=== PATIENT | female | born 1995 | race African-American/Black ===

== ENCOUNTER 2020-07-30 17:47 | Inpatient (IN) | payer OTHER, SELFPAY ==
[2020-07-30 18:13] VITALS: BP 137/99; PULSE 67; RESP 15; TEMP 36.2; O2SAT 99
--- NOTE | 2020-07-30 19:09 | ED.GENADULT ---
HPI - General Adult General Chief complaint: Unspecified Stated complaint: lupus flare up, no local specialist Time Seen by Provider: 07/30/20 18:57 History of Present Illness HPI narrative: 25 yo female w/ SLE presents to the ED for a Lupus flare. She has had atraumatic bruising of the lower extremities and bleeding ulcers in her mouth for a few weeks. She also reports having a recent very heavy period. SHe frequently feels light headed and occasionally SOB. These are not her typical lupus symptoms, but she believes that they are related. She has a prescription for hydroxychloroquine, but she had not been taking it regularly. She was on prednisone, but ran out. She has no doctor in the area. Related Data Home Medications Medication Instructions Recorded Confirmed hydroxychloroquine 200 mg PO DAILY 07/30/20 07/30/20 multivitamin with iron [Daily 1 tablet PO DAILY 07/30/20 07/30/20 Multivitamins W/Iron] mycophenolate mofetil 1,000 mg PO Q12H 07/30/20 07/30/20 Allergies Allergy/AdvReac Type Severity Reaction Status Date / Time No Known Allergies Allergy Verified 07/31/20 03:14 Review of Systems Review of Systems: All systems reviewed & are unremarkable except as noted in HPI and below Constitutional: Constitutional: Denies fever(s) Eyes: Eyes: Reports no additional eye complaints Cardiovascular: Cardiovascular: Denies chest pain Gastrointestinal: Gastrointestinal: Denies abdominal pain and Denies vomiting Musculoskeletal: Musculoskeletal: Denies arthralgias Neurologic: Denies numbness and Denies weakness Psychiatric: Psychiatric: Denies confusion [facility] Past Medical History Medical History (Updated 07/31/20 @ 03:24 by Kieran Salgado MD) Lupus Social History Social History Smoking status: Never smoker Alcohol intake: never Substance use: never Gender identity (if verbalized by the patient): Female Spiritual care concerns: No Exam Const: General: healthy appearing, no acute distress and alert Orientation/consciousness: patient oriented x3 HENMT: Head: normal to inspection Mouth: Yes other (single on soft palate with overlying clot) Neck: Neck: normal visual inspection and no lymphadenopathy Chest: Chest palpation & inspection: no tenderness Resp: Effort & Inspection: normal respiratory effort Auscultation: clear to auscultation bilaterally, no rales, no rhonchi and no wheezes Cardio: Jugular venous distension: no JVD Rate: regular rate Rhythm: regular rhythm Heart sounds: no murmurs GI: Inspection: non-distended GI Palp: Yes Soft to palpation and No Tenderness to palpation present (GI) Skin: Other: scattered bruising to BLE in various stages of healing Neuro: General: patient oriented x3 and moves all extremities Speech: normal speech Extrem: General: no edema Psych: Appearance: well kempt Affect: normal affect Course Vital Signs Vital signs: Vital Signs Temperature 36.2 C L 07/30/20 18:13 Pulse Rate 67 07/30/20 18:13 Respiratory Rate 15 07/30/20 18:13 Blood Pressure 137/99 H 07/30/20 18:13 Pulse Oximetry 99 07/30/20 18:13 Temperature 36.6 C 07/31/20 02:39 Pulse Rate 69 07/31/20 02:39 Respiratory Rate 20 07/31/20 02:39 Blood Pressure 120/63 07/31/20 02:39 Pulse Oximetry 100 07/31/20 02:39 Medical Decision Making Vital Signs Vital Signs: Vital Signs Temperature 36.2 C L 07/30/20 18:13 Pulse Rate 67 07/30/20 18:13 Respiratory Rate 15 07/30/20 18:13 Blood Pressure 137/99 H 07/30/20 18:13 Pulse Oximetry 99 07/30/20 18:13 Temperature 36.6 C 07/31/20 02:39 Pulse Rate 69 07/31/20 02:39 Respiratory Rate 20 07/31/20 02:39 Blood Pressure 120/63 07/31/20 02:39 Pulse Oximetry 100 07/31/20 02:39 Lab Data Result diagrams: 07/30/20 20:12 07/30/20 20:12 Labs: Lab Results 07/30/20 07/30/20 07/30/20 Range/Units 20:12 20:12 20:12 WBC 2.5 L (4.
[2020-07-30 20:23] LABS: Basophils Percent Auto 0.4 % (0.2-1.2); Eosinophils Percent Auto 0.4 % (0-4.4); Hematocrit 35.4 % (37.0-47.0); Hemoglobin 11.9 g/dL (12.0-15.0); Immature Platelet Fraction Pct 12.4 % (0.9-11.2); Lymphocytes Absolute Auto 1.43 K/mm3 (0.9-3.2); Lymphocytes Percent Auto 57.2 % (18.3-44.2); Mean Corpuscular HGB Conc 33.6 g/dl (32-36); Mean Corpuscular Hemoglobin 28.9 pg (26-34); Mean Corpuscular Volume 85.9 fl (80-100); Monocytes Absolute Auto 0.2 K/mm3 (0.1-0.6); Neutrophils Absolute Auto 0.9 K/mm3 (1.3-6.7); Red Blood Count 4.12 M/mm3 (4.2-5.4); Red Cell Distribution Width 12.9 % (11.5-14.5); White Blood Count 2.5 K/mm3 (4.5-10.0)
[2020-07-30 20:30] LABS: Prothrombin Time 13.3 Seconds (11.1-14.7)
[2020-07-30 20:31] LABS: Partial Thromboplastin Time 25.7 SECONDS (22.3-36.8); Platelet Count Result < 3 k/mm3 (150-375)
[2020-07-30 20:33] LABS: Add Urine Microscopic? YES; Appearance Urine Clear (Clear); Bacteria Urine Trace /hpf; Bilirubin Urine Negative (Negative); Blood Urine 1+ (Negative); Color Urine Straw (Yellow); Glucose Urine UA Negative (Negative); Ketones Urine Negative (Negative); Leukocyte Esterase Ur Negative LEU/UL (Negative); Mucus Urine Rare /lpf; Nitrate Urine Negative (Negative); Protein Urine 1+ mg/dL (Negative); Specific Grav Ur 1.012 (1.001-1.035); Squamous Epithelial Cell Urine Rare /hpf (Few); Urobilinogen Urine Negative mg/dL (<2.0); WBC Urine 0-3 /hpf
[2020-07-30 20:36] LABS: Alanine Aminotransferase 12 U/L (4-35); Albumin Level 4.5 g/dL (3.5-5.1); Alkaline Phosphatase 53 U/L (38-126); Anion Gap 7 mmol/L (8-16); Aspartate Amino Transferase 24 U/L (14-36); Bilirubin,Total 0.3 mg/dL (0.2-1.3); Blood Urea Nitrogen 8 mg/dL (7-17); Calcium 8.8 mg/dL (8.4-10.2); Carbon Dioxide 31 mmol/L (22-30); Chloride 101 mmol/L (98-107); Estimated CRCL calculation 104 ml/min; Estimated Glomerular Filt Rate > 60; Glucose 85 mg/dL (65-105); Potassium 3.4 mmol/L (3.4-5.0); Sodium 139 mmol/L (137-145)
[2020-07-30 20:59] LABS: Erythrocyte Sedimentation Rate 15 mm/hr (0-20)
[2020-07-30 21:18] VITALS: BP 120/85; PULSE 114; RESP 18; O2SAT 97
[2020-07-30] MEDS: methylPREDNISolone SOD SUCC 125 MG VIAL IV PUSH (21:18)
[2020-07-30] MEDS: PANTOPRAZOLE SODIUM IV 40 MG VIAL IV PUSH (21:18)
[2020-07-30 21:32] LABS: CRP < 0.5 mg/dL (<1.0)
[2020-07-30 22:50] VITALS: BP 126/84; PULSE 70; RESP 20; TEMP 36.5; O2SAT 100; BMI 19.6
--- NOTE | 2020-07-30 23:07 | PC.NURSE ---
This patient, Gregory Kwon, was admitted to [facility] Surg Room 312-01. Patient/family oriented to hospital policies and general routines including ID bracelet, bed and alarms, visiting hours, pain management, procedures, bathroom and other care routines, personal items, smoking policy, room service/diet, and visiting hours. Information on how to activate the Rapid Response Team has been discussed. Patient/Family are encouraged to report perceived risks to care and to ask questions if they do not understand what they are told or what they should do.
[2020-07-30 23:54] VITALS: BP 114/68; PULSE 71; RESP 20; TEMP 36.8; O2SAT 100
[2020-07-31] VITALS (12 sets, daily range): BP systolic 101–125; BP diastolic 61–77; PULSE 60–70; RESP 18–20; TEMP 36.1–36.9; O2SAT 98–100
[2020-07-31] MEDS: methylPREDNISolone SOD SUCC 125 MG VIAL IV PUSH ×3 (05:44→21:22)
[2020-07-31 06:08] LABS: Hematocrit 35.7 % (37.0-47.0); Hemoglobin 12.2 g/dL (12.0-15.0); Immature Granulocyte Absolute 0.01 K/mm3 (0.00-0.031); Immature Granulocyte Percent A 0.4 % (0-0.5); Immature Platelet Fraction Pct 12.3 % (0.9-11.2); Lymphocytes Absolute Auto 0.86 K/mm3 (0.9-3.2); Lymphocytes Percent Auto 32.8 % (18.3-44.2); Mean Corpuscular HGB Conc 34.2 g/dl (32-36); Monocytes Absolute Auto 0.1 K/mm3 (0.1-0.6); Monocytes Percent Auto 3.1 % (2.6-8.5); Neutrophils Absolute Auto 1.7 K/mm3 (1.3-6.7); Neutrophils Percent Auto 63.7 % (45.5-73.1); Red Cell Distribution Width 12.8 % (11.5-14.5); White Blood Count 2.6 K/mm3 (4.5-10.0)
[2020-07-31 06:27] LABS: Anion Gap 10 mmol/L (8-16); Blood Urea Nitrogen 9 mg/dL (7-17); Calcium 9.4 mg/dL (8.4-10.2); Carbon Dioxide 25 mmol/L (22-30); Chloride 107 mmol/L (98-107); Estimated CRCL calculation 111 ml/min; Estimated Glomerular Filt Rate > 60; Glucose 121 mg/dL (65-105); Potassium 4.2 mmol/L (3.4-5.0); Sodium 142 mmol/L (137-145)
[2020-07-31 06:51] LABS: Platelet Count Result 21 k/mm3 (150-375)
--- NOTE | 2020-07-31 07:07 | PM.IMHP ---
H&P: HPI History of Present Illness Date/Time: 07/31/20 06:20 Chief complaint: ?Lupus flare up? Narrative: Gregory Kwon is a 25 year old female with a past medical history of SLE since 2016 who presented to the ER due to atraumatic bruising of her extremities and petechiae. The patient reported that she noticed increased bruising from her baseline about 2 weeks ago. That she started her menstrual cycle on the and had a heavier than usual menses. Her menstrual cycle has since stopped. She had also noticed what she thought were blisters in her mouth but are actually petechiae. She was having some bleeding when brushing her teeth as well. These symptoms are different than her usual lupus flares. Her usual with lupus flares involve swelling of the joints her joints. When she was initially diagnosed with lupus she had a complicated course including bilateral pleural effusions requiring bilateral thoracentesis and steroid difficulty swallowing (I suspect possibly thrush or steroid induced esophagitis). She required a blood transfusion with her initial illness in 2015. The patient moved to this area from [place] last year. She has not established with a primary care doctor or paraffiner. She reports that she has been taking her hydroxychloroquine and mycophenolate as directed. But she quit taking the prednisone 5 mg. She reports that she does not like taking steroids because of the side effects she had with the steroids during her initial occurrence of lupus. When she was taking her prednisone she was not taking it as directed. She reports that she has been relatively asymptomatic with her SLE over the last year. She denies any hematochezia, melena or hematuria. She has not had any recent viral illnesses. She denies any known ill contacts. However she works with the public in financial circles. Review of Systems Review of Systems: Narrative: 12 systems were reviewed with pertinent positives and negatives per HPI. Except as documented in the HPI, all other systems were reviewed and are negative. [facility] Past Medical History Medical History (Updated 07/31/20 @ 08:35 by Fannie Odom DO) SLE (systemic lupus erythematosus) Surgical History Surgical History (Updated 07/31/20 @ 08:35 by Fannie Odom DO) History of esophagogastroduodenoscopy (EGD) 2016 History of thoracentesis Bilateral 2016 Family History Family History Mother Patient's mother is in good health Father Patient's father is in good health Sibling Patient's brother is in good health Patient's sister is in good health Social History Social History (Updated 07/31/20 @ 08:38 by Fannie Odom DO) Social History: She moved to the area last year when her job transferred her up here. She works in the financial industry. She is originally from [place]. She is single and lives alone. Smoking status: Never smoker Alcohol intake: never Substance use: never Gender identity (if verbalized by the patient): Female Spiritual care concerns: No Meds Home Medications and Allergies Home Medications Medication Instructions Recorded Confirmed Type hydroxychloroquine 200 mg PO DAILY 07/30/20 07/30/20 History multivitamin with iron [Daily 1 tablet PO DAILY 07/30/20 07/30/20 History Multivitamins W/Iron] mycophenolate mofetil 1,000 mg PO Q12H 07/30/20 07/30/20 History Allergies Allergy/AdvReac Type Severity Reaction Status Date / Time No Known Allergies Allergy Verified 07/31/20 03:14 Vital Signs Vital Signs - 24 hr 07/30/20 18:13 07/30/20 21:18 07/30/20 22:50 Temperature 97.1 F L 97.7 F Pulse Rate 67 114 H 70 Respiratory Rate 15 18 20 Blood Pressure 137/99 H 120/85 126/84 Pulse Oximetry 99 97 100 07/30/20 23:54 07/31/20 00:10 07/31/20 01:10 Temperature 98.2 F 98.2 F 97.6 F Pulse Rate 71 70 70 Respiratory Rate 20 20 20 Blood Pressure 114/
[2020-07-31] MEDS: PANTOPRAZOLE SODIUM IV 40 MG VIAL IV PUSH ×2 (09:58→21:22)
[2020-07-31] MEDS: THERAPEUTIC MULTIVITAMINS/MINERALS TAB (*BKC) 1 TABLET PO (09:58)
--- NOTE | 2020-07-31 12:14 | PM.IMPN ---
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 She received 2 units of platelets and platelet count improved to 21,000 from 3,000. Discussed with Dr. Davis and will plan to hold hydroxychloroquine and mycophenolate for now. Continue IV methylprednisolone. Await further input from Dr. Davis which is greatly appreciated. Menstrual bleeding has ceased and she has not had any further bleeding today. (2) Thrombocytopenia: Code(s): D69.6 - Thrombocytopenia, unspecified Status: Acute Assessment and Plan: As above. Continue to monitor closely. (3) SLE (systemic lupus erythematosus): Code(s): M32.9 - Systemic lupus erythematosus, unspecified Status: Chronic Assessment and Plan: Hydroxychloroquine and mycophenolate mofetil are currently held. She understands that with her medication being on hold this may precipitate a flare of her SLE. She will need to establish care with rheumatology locally. Subjective Date/time seen: 07/31/20 12:14 Mrs. Kwon is a 25 y.o. female with PMH significant for SLE who is seen in follow-up for thrombocytopenia felt secondary to ITP verses medication side effect. She reports that she is doing better overall today. Her menstrual bleeding has stopped completely. She notes bruising to the lower extremities and left elbow which is unchanged. She denies hematuria, hematochezia, and melena. She notes no further bleeding from the petechiae in her oral mucosa. She denies epistaxis. She denies significant fatigue and dyspnea today. She denies joint aches/pain. She denies chest pain. She is voiding without difficulty. She denies cough. She denies subjective fever and chills. She denies dizziness and lightheadedness. She has no other complaints. Review of Systems Review of Systems: All systems reviewed & are unremarkable except as noted in HPI and below Exam Narrative: Exam Narrative: General: Very pleasant and cooperative, healthy-appearing, well-developed, and well-nourished 25 y.o. female sitting up in the bed in no acute distress. She is non-toxic in appearance. HEENT: Normocephalic and atraumatic. Sclerae anicteric. Conjunctivae without injection or exudate. PERRL. EOMI. Oral mucosa moist with several petechiae on the buccal mucosa. Neck: Supple. Cardiac: Regular rate and rhythm. S1 and S2 normal. Lungs: Lungs are clear to auscultation bilaterally. Abdomen: Bowel sounds are normoactive. Abdomen is soft, non-distended, and non-tender. Extremities: No lower extremity edema or calf tenderness. Palpable DP and PT bilaterally. Neurological: Alert. No focal neurological deficits noted. Speech is clear. Skin: Warm and dry. Ecchymosis to the lower extremities and left elbow, atraumatic and diffuse. Soft to palpation. Some petechiae on the upper middle back as well. Psychiatric: Judgment and insight intact. Pleasant mood and appropriate affect. Objective Data Vital Signs Vital Signs: Vital Signs - 24 hr 07/30/20 18:13 07/30/20 21:18 07/30/20 22:50 Temperature 97.1 F L 97.7 F Pulse Rate 67 114 H 70 Respiratory Rate 15 18 20 Blood Pressure 137/99 H 120/85 126/84 Pulse Oximetry 99 97 100 07/30/20 23:54 07/31/20 00:10 07/31/20 01:10 Temperature 98.2 F 98.2 F 97.6 F Pulse Rate 71 70 70 Respiratory Rate 20 20 20 Blood Pressure 114/68 116/61 118/66 Pulse Oximetry 100 100 100 07/31/20 01:55 07/31/20 02:19 07/31/20 02:39 Temperature 97.8 F 97.0 F L 97.9 F Pulse Rate 68 67 69 Respiratory Rate 20 20 20 Blood Pressure 125/61 117/67 120/63 Pulse Oximetry 100 100 100 07/31/20 03:39 07/31/20 03:46 07/31/20 03:47 Temperature 98.4 F 97.5 F L 97.5 F L Pulse Rate 64 64 64 Respiratory Rate 20 20 20 Blood Pressure 116/70 1
--- NOTE | 2020-07-31 16:57 | PDONCCN ---
HPI - Date of Consult Date/Time: 07/31/20 16:57 Requesting Physician: Shellie Melara PA-C Primary Care Provider: [employer]ICIAN - Consult Narrative Reason for consult: Profound thrombocytopenia Narrative: Gregory Kwon is a 25 year old female This is a pleasant 25-year-old female who was diagnosed with systemic lupus erythematosus in 2016 when she presented with bilateral lower extremity swelling. Patient was at that time living in [facility]. She was seen by the agricultural research director and was started on Plaquenil as well as CellCept feature continues to take. Patient recently moved. She came into the ER with possible lupus flare of symptoms with bilateral lower extremity bruising. She was having heavy menstrual bleeding which just stopped today. She has some oral blisters. She denies any fevers and chills. Her labs showed platelet count of 3000 in the ER. She denies any melena hematochezia. Review of Systems - Review of Systems All systems reviewed & are unremarkable except as noted in HPI and bel - Neurologic Denies confusion, Denies numbness, Denies weakness PMFSH Medical History: Medical History (Last Updated 07/31/20 @ 08:35 by Fannie Odom DO) SLE (systemic lupus erythematosus) Surgical History: Surgical History (Last Updated 07/31/20 @ 08:35 by Fannie Odom DO) History of esophagogastroduodenoscopy (EGD) 2016 History of thoracentesis Bilateral 2016 Family History: Family History (Last Reviewed 07/31/20 @ 08:37 by Fannie Odom DO) Mother Patient's mother is in good health Father Patient's father is in good health Sibling Patient's brother is in good health Patient's sister is in good health - Social History Social History: Social History (Last Updated 07/31/20 @ 08:38 by Fannie Odom DO) Gender Identity: Gender identity (if verbalized by the patient): Female Alcohol Use: Alcohol intake: never Substance Use: Substance use: never Others: Spiritual care concerns: No Smoking Status: Smoking status: Never smoker Meds Home Medications Medication Instructions Recorded Confirmed Type hydroxychloroquine 200 mg PO DAILY 07/30/20 07/30/20 History multivitamin with iron [Daily 1 tablet PO DAILY 11/02/20 11/02/20 History Multivitamins W/Iron] mycophenolate mofetil 1,000 mg PO Q12H 07/30/20 07/30/20 History Allergies Allergy/AdvReac Type Severity Reaction Status Date / Time No Known Allergies Allergy Verified 07/31/20 03:14 Results - Labs CBC & Chem 7: 07/31/20 05:55 07/31/20 05:55 Labs: Short CBC 07/30/20 07/31/20 Range/Units 20:12 05:55 WBC 2.5 L 2.6 L (4.5-10.0) K/mm3 Hgb 11.9 L 12.2 (12.0-15.0) g/dL Hct 35.4 L 35.7 L (37.0-47.0) % Plt Count < 3 L* 21 L* D (150-375) k/mm3 BMP 07/30/20 07/31/20 20:12 05:55 Sodium 139 142 Potassium 3.4 4.2 Chloride 101 107 Carbon Dioxide 31 H 25 BUN 8 9 Creatinine 0.70 0.60 L Glucose 85 121 H Calcium 8.8 9.4 Liver Function 07/30/20 Range/Units 20:12 Total Bilirubin 0.3 (0.2-1.3) mg/dL AST 24 (14-36) U/L ALT 12 (4-35) U/L Alkaline Phosphatase 53 (38-126) U/L Albumin 4.5 (3.5-5.1) g/dL Urine 07/30/20 Range/Units 20:19 Urine Color Straw (Yellow) Urine Appearance Clear (Clear) Urine pH 6.0 (5.0-9.0) Ur Specific [place] 1.012 (1.001-1.035) Urine Protein 1+ H (Negative) mg/dL Urine Glucose (UA) Negative (Negative) mg/dL Assessment and Plan - Additional Plan Profound thrombocytopenia. This is a pleasant 25-year-old female with diagnosis of systemic lupus erythematosus. She is on CellCept as well as Plaquenil for last 4 years duration. Labs reviewed. 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 I will order platelet Fabiana immunoglobulin. Patient has already been
[2020-08-01] VITALS (13 sets, daily range): BP systolic 111–138; BP diastolic 59–77; PULSE 52–82; RESP 16–20; TEMP 36.2–36.7; O2SAT 100
[2020-08-01 05:29] LABS: Hematocrit 36.9 % (37.0-47.0); Hemoglobin 12.4 g/dL (12.0-15.0); Immature Granulocyte Absolute 0.02 K/mm3 (0.00-0.031); Immature Granulocyte Percent A 0.4 % (0-0.5); Lymphocytes Absolute Auto 0.99 K/mm3 (0.9-3.2); Lymphocytes Percent Auto 20.3 % (18.3-44.2); Mean Corpuscular HGB Conc 33.6 g/dl (32-36); Mean Corpuscular Hemoglobin 28.1 pg (26-34); Mean Corpuscular Volume 83.5 fl (80-100); Monocytes Absolute Auto 0.2 K/mm3 (0.1-0.6); Monocytes Percent Auto 4.3 % (2.6-8.5); Neutrophils Absolute Auto 3.7 K/mm3 (1.3-6.7); Red Blood Count 4.42 M/mm3 (4.2-5.4); Red Cell Distribution Width 12.5 % (11.5-14.5); White Blood Count 4.9 K/mm3 (4.5-10.0)
[2020-08-01] MEDS: methylPREDNISolone SOD SUCC 125 MG VIAL IV PUSH ×3 (05:37→21:49)
[2020-08-01 05:38] LABS: Anion Gap 10 mmol/L (8-16); Blood Urea Nitrogen 12 mg/dL (7-17); Calcium 9.7 mg/dL (8.4-10.2); Carbon Dioxide 31 mmol/L (22-30); Chloride 100 mmol/L (98-107); Estimated CRCL calculation 96 ml/min; Estimated Glomerular Filt Rate > 60; Glucose 131 mg/dL (65-105); Potassium 4.2 mmol/L (3.4-5.0); Sodium 141 mmol/L (137-145)
[2020-08-01 05:50] LABS: Ovalocytes 1+ (NORMAL); Platelet Count Result 6 k/mm3 (150-375); Platelet Estimate Decreased (Adequate)
[2020-08-01 05:51] LABS: Large Platelets Present
[2020-08-01 06:19] LABS: HIV 1/2 Ab P24 Ag Result Negative (Negative)
[2020-08-01 06:36] LABS: Hepatitis B Surface Antigen Negative (Negative)
[2020-08-01 06:42] LABS: HAV RESULT Negative (Negative); Hepatitis B Core IgM Result Negative (Negative)
[2020-08-01 06:44] LABS: Folic Acid 13.5 ng/mL (2.76->20)
[2020-08-01 06:54] LABS: Hepatitis C Virus Antibody Negative (Negative)
[2020-08-01] MEDS: TUBING, BLOOD PLUM PUMP TUBING 1 EACH XX ×2 (09:09→11:36)
[2020-08-01] MEDS: THERAPEUTIC MULTIVITAMINS/MINERALS TAB (*BKC) 1 TABLET PO ×2 (09:09→09:11)
[2020-08-01] MEDS: SODIUM CHLORIDE 0.9% IV 250 ML 30 ML IV CONT (09:09)
[2020-08-01] MEDS: PANTOPRAZOLE SODIUM IV 40 MG VIAL IV PUSH ×2 (11:36→20:39)
--- NOTE | 2020-08-01 12:42 | PM.IMPN ---
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 She received 2 units of platelets 07/30 and platelet count improved to 21,000 from 3,000. Platelets were 6,000 today and she received an additional 2 units of platelets (08/01). Vitamin B12, folate are sufficient. TSH is normal. Hepatitis panel and HIV testing are negative. Dr. Davis is following and has recommended to hold hydroxychloroquine and mycophenolate for now. Direct platelet-bound IgG Ab was ordered and pending. Continue IV methylprednisolone. Discussed with Dr. Davis and may consider IVIG today given decrease in platelets. Await further hematology recommendations. She is not having any ongoing bleeding but does have bruising to the lower extremities, mildly darker in color today. Repeat CBC tomorrow for monitoring. (2) Thrombocytopenia: Code(s): D69.6 - Thrombocytopenia, unspecified Status: Acute Assessment and Plan: As above. Continue to monitor closely. (3) SLE (systemic lupus erythematosus): Code(s): M32.9 - Systemic lupus erythematosus, unspecified Status: Chronic Assessment and Plan: Hydroxychloroquine and mycophenolate mofetil are currently held. She understands that with her medication being on hold this may precipitate a flare of her SLE. She will need to establish care with rheumatology locally and Dr. Alamo has agreed to see her outpatient next week. (4) Headache: Code(s): R51.9 - Headache, unspecified Status: Acute Assessment and Plan: Add tylenol as needed for pain. She notes that the headache continues to improve. Monitor with neuro checks. She believes this is related to solu-medrol as she notes that steroids often cause her to have headaches. Continue to monitor closely. Additional Plan Add colace as needed for constipation. Subjective Date/time seen: 08/01/20 12:42 Mrs. Kwon is a 25 y.o. female with PMH significant for SLE who is seen in follow-up for thrombocytopenia felt secondary to ITP verses medication side effect. Dr. Davis is following. She reports no further menstrual bleeding. The bruises on her legs seem darker to her today but she reports no new bruises. She denies oral bleeding, hematuria, melena, and hematochezia. She reports a mild frontal headache. She notes that it started yesterday evening and has improved throughout the day today. She has not taken anything yet for pain. She denies associated symptoms including no vision change, speech change, paresthesias, or lateralizing weakness. She thinks it may be due to steroids as she has gotten headaches from steroids in the past. She feels constipated today. She had a small, formed stool yesterday but no further bowel movements today. She has no other complaints including no chest pain and shortness of breath. She denies nausea and vomiting. She is tolerating her diet. Review of Systems Review of Systems: All systems reviewed & are unremarkable except as noted in HPI and below Exam Narrative: Exam Narrative: General: Very pleasant and cooperative, healthy-appearing, well-developed, and well-nourished 25 y.o. female sitting up in the bed in no acute distress. She is non-toxic in appearance. HEENT: Normocephalic and atraumatic. Sclerae anicteric. Conjunctivae without injection or exudate. PERRL. EOMI. Oral mucosa moist with several petechiae on the buccal mucosa. Neck: Supple. Cardiac: Regular rate and rhythm. S1 and S2 normal. Lungs: Lungs are clear to auscultation bilaterally. Abdomen: Bowel sounds are normoactive. Abdomen is soft, non-distended, and non-tender. Extremities: No lower extremity edema or calf tenderness. Palpable DP and PT bilaterally. Neurological: Alert. No focal neurol
[2020-08-01] MEDS: ACETAMINOPHEN 325 MG TABLET 650 MG PO ×2 (15:56→21:50)
[2020-08-01] MEDS: DOCUSATE SODIUM 100 MG CAPSULE PO (15:57)
--- NOTE | 2020-08-01 17:42 | WPDONCPN ---
Progress Note: A/P - Additional Plan 1. Suspected ITP. Platelet madonna <3,000 on admission then up to 21,000 after 1U, now decreased to 6,000 today. Coags normal, platelet Ab pending. She is s/p 3 units of platelets, including 2 units today. No significant active bleeding. Transfuse platelets </= 10,000 or with active bleeding. Continue Solumedrol as ordered with concurrent PPI until platelets 50,000 or better then switch to weight-based oral prednisone with 10 mg taper every 5 days. Add IVIG today per Dr. Davis. Explained that this can recur off treatment. Will see as outpatient after discharge. 2. SLE. Referred to Dr. Alamo to establish care upon discharge. - Time Spent With Patient Total time spent is greater than 50% in coordination of care (as documented) at patient's floor/unit and/or counseling patient: less than 15 minutes Subjective Interval history: 25 yo BF admitted on 07/31 after presenting to ER with spontaneous bilat LE painless ecchymosis without trauma and epistaxis x 2 a few days prior to admission. Additionally, she noted blood blisters in her mouth as well as heavier menstrual flow but otherwise denies hematuria, melena or hematochezia. She was otherwise in her usual state of health with lupus since 2016, treated with Cellcept and Plaquenil - currently on hold given thrombocytopenia. She endorses baseline mild intermittent ecchymosis on her lower extremities but not to current degree. She has not had SLE flare since past year. Her menses had stopped when her platelets improved to 21,000 but noted scant brown to light red vaginal bleeding today only with wiping with platelets 6,000. She received 1U of platelets yesterday and 2U today. She otherwise denies other spontaneous or active bleeding, B symptoms, SOB, abdominal pain, or significant joint pain. Review of Systems - Review of Systems All systems reviewed & are unremarkable except as noted in HPI and bel - Neurologic Denies confusion, Denies numbness, Denies weakness Exam Vital signs: Temp Pulse Resp BP Pulse Ox 36.7 C 58 L 16 133/73 100 08/01/20 14:53 08/01/20 14:53 08/01/20 14:53 08/01/20 14:53 08/01/20 14:53 - Constitutional no acute distress, cooperative - Routine HEENT Exam Head: Present: atraumatic, normal inspection, normocephalic Eye: Present: conjunctival injection, EOMI, normal appearance ENT: Present: mucous membranes moist Comments: Tiny blood blister in lower Lt posterior buccal mucosa - Routine Neck Exam Present: full ROM, normal inspection. Absent: lymphadenopathy, thyromegaly - Routine Chest/Breast/Axilla Exam Axillae: Absent: lymphadenopathy - Routine Respiratory Exam Present: CTAB - Routine Cardiovascular Exam Cardiovascular: Present: RRR - Routine Abdominal Exam Present: normal bowel sounds, soft. Absent: tenderness - Routine Extremities Exam Present: pulses intact. Absent: pedal edema, tenderness - Routine Skin Exam Present: ecchymosis Comments: Multiple ecchymosis on bilat lower extremities, largest measuring ~3-3.5 cm, nontender. PN: Objective Data - Labs CBC & Chem 7: 08/01/20 05:19 08/01/20 05:19 Labs: Laboratory Results - last 24 hr 07/30/20 08/01/20 08/01/20 21:14 05:19 05:19 WBC RBC Hgb Hct MCV MCH MCHC RDW Plt Count MPV Immature Gran % (Auto) Neut % (Auto) Lymph % (Auto) [place] % (Auto) Eos % (Auto) Baso % (Auto) Lymph # (Auto) [place] # (Auto) Eos # (Auto) Baso # (Auto) Abs Immat Gran (auto) Absolute Neuts (auto) Absolute Nucleated RBC Nucleated RBC % Platelet Estimate Large Platelets % Immature Plt Fraction Ovalocytes Sodium Potassium Chloride Carbon Dioxide Anion Gap BUN Creatinine Estim Creat Clear Calc Estimated GFR Glucose Calcium Vitamin B12 Folate TSH (Reflex) 0.550 Hepatitis A IgM Ab Negative He
[2020-08-02 06:00] VITALS: BP 110/54; PULSE 50; RESP 20; TEMP 36.9; O2SAT 100
[2020-08-02] MEDS: methylPREDNISolone SOD SUCC 125 MG VIAL IV PUSH ×3 (06:41→22:04)
[2020-08-02 07:51] LABS: Basophils Percent Auto 0.1 % (0.2-1.2); Hematocrit 33.6 % (37.0-47.0); Hemoglobin 11.4 g/dL (12.0-15.0); Immature Granulocyte Absolute 0.02 K/mm3 (0.00-0.031); Immature Granulocyte Percent A 0.3 % (0-0.5); Lymphocytes Absolute Auto 1.15 K/mm3 (0.9-3.2); Lymphocytes Percent Auto 15.3 % (18.3-44.2); Mean Corpuscular HGB Conc 33.9 g/dl (32-36); Mean Corpuscular Hemoglobin 28.9 pg (26-34); Mean Corpuscular Volume 85.1 fl (80-100); Mean Platelet Volume 13.6 fl (7.4-10.4); Monocytes Absolute Auto 0.2 K/mm3 (0.1-0.6); Monocytes Percent Auto 3.1 % (2.6-8.5); Neutrophils Absolute Auto 6.1 K/mm3 (1.3-6.7); Neutrophils Percent Auto 81.2 % (45.5-73.1); Platelet Count Result 71 k/mm3 (150-375); Red Blood Count 3.95 M/mm3 (4.2-5.4); White Blood Count 7.5 K/mm3 (4.5-10.0)
[2020-08-02 08:03] LABS: Anion Gap 7 mmol/L (8-16); Blood Urea Nitrogen 18 mg/dL (7-17); Calcium 9.1 mg/dL (8.4-10.2); Carbon Dioxide 30 mmol/L (22-30); Chloride 102 mmol/L (98-107); Estimated CRCL calculation 85 ml/min; Estimated Glomerular Filt Rate > 60; Glucose 119 mg/dL (65-105); Potassium 4.1 mmol/L (3.4-5.0); Sodium 139 mmol/L (137-145)
[2020-08-02] MEDS: PANTOPRAZOLE SODIUM IV 40 MG VIAL IV PUSH ×2 (09:50→20:27)
--- NOTE | 2020-08-02 12:59 | PM.IMPN ---
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 She received 2 units of platelets 07/30 and platelet count improved to 21,000 from 3,000. Platelet dropped to 6,000 08/01. She was given 2 additional units 08/01. IVIG and platelet count improved to 71,000 today. Vitamin B12, folate are sufficient. TSH is normal. Hepatitis panel and HIV testing are negative. Dr. Davis is following and has recommended to hold hydroxychloroquine and mycophenolate for now. Direct platelet-bound IgG Ab was ordered and pending. Continue IV methylprednisolone and repeat CBC tomorrow. Appreciate hematology input. (2) Thrombocytopenia: Code(s): D69.6 - Thrombocytopenia, unspecified Status: Acute Assessment and Plan: As above. Continue to monitor closely. (3) SLE (systemic lupus erythematosus): Code(s): M32.9 - Systemic lupus erythematosus, unspecified Status: Chronic Assessment and Plan: Hydroxychloroquine and mycophenolate mofetil are currently held. She understands that with her medication being on hold this may precipitate a flare of her SLE. She will need to establish care with rheumatology locally and Dr. Alamo has agreed to see her outpatient. (4) Headache: Code(s): R51.9 - Headache, unspecified Status: Resolved Assessment and Plan: Resolved. Continue tylenol as needed for pain. Additional Plan Add colace as needed for constipation. Subjective Date/time seen: 08/02/20 12:59 Mrs. Kwon is a 25 y.o. female with PMH significant for SLE who is seen in follow-up for thrombocytopenia secondary to ITP. Dr. Davis is following. She is doing well. She had scant vaginal bleeding yesterday with wiping but has not had any further bleeding today. She notes no further bruising. She had a headache yesterday which has resolved. She denies hematuria, melena, and hematochezia. She denies chest pain and dyspnea. She is tolerating her diet. She has no other complaints. Review of Systems Review of Systems: All systems reviewed & are unremarkable except as noted in HPI and below Exam Narrative: Exam Narrative: General:Pleasnt, cooperative, healthy-appearing and well-nourished 25 y.o. female lying semi-recumbent in bed in no acute distress watching TV. HEENT: Normocephalic and atraumatic. Oral mucosa moist with small blisters on buccal mucosa bilaterally without active bleeding and healing. Neck: Supple. Cardiac: Regular rate and rhythm. S1 and S2 normal. Lungs: Lungs are clear to auscultation bilaterally. Abdomen: Bowel sounds are normoactive. Abdomen is soft, non-distended, and non-tender. Extremities: No lower extremity edema or calf tenderness. Neurological: Alert. No focal neurological deficits noted. Speech is clear. Skin: Warm and dry. Ecchymosis to the lower extremities and left elbow, atraumatic and diffuse without evidence of hematoma. Some petechiae on the upper middle back as well. Psychiatric: Judgment and insight intact. Pleasant mood and appropriate affect. Objective Data Vital Signs Vital Signs: Vital Signs - 24 hr 08/01/20 13:01 08/01/20 14:00 08/01/20 14:01 Temperature 98.1 F 97.5 F L 97.5 F L Pulse Rate 74 64 82 Respiratory Rate 16 16 16 Blood Pressure 133/71 115/71 117/72 Pulse Oximetry 100 100 100 08/01/20 14:53 08/01/20 19:35 08/01/20 22:00 Temperature 98.1 F 97.8 F Pulse Rate 58 L 52 L Respiratory Rate 16 20 20 Blood Pressure 133/73 113/72 Pulse Oximetry 100 100 100 08/02/20 06:00 Temperature 98.5 F Pulse Rate 50 L Respiratory Rate 20 Blood Pressure 110/54 L Pulse Oximetry 100 Intake/Output Intake/Output: Intake & Output 07/30/20 07/31/20 08/01/20 08/02/20 23:59 23:59 23:59 23:59 Intake Total 0 184
[2020-08-02 14:00] VITALS: BP 124/67; PULSE 63; RESP 16; TEMP 36.1; O2SAT 100
--- NOTE | 2020-08-02 16:39 | WPDONCPN ---
Progress Note: A/P - Additional Plan Thrombocytopenia secondary to ITP. Platelet antibodies remains pending. Platelet count finally has improved. Patient is on IV Solu-Medrol along with IV IgG today. She also receive another unit of platelet transfusion. I will continue Solu-Medrol at the current dose a until tomorrow and if platelet count remains more than 50,000 we will discontinue IV steroid and start her on prednisone 60 mg twice a day. She will follow-up in the office in 1 week for tapering of the steroid and monitoring of CBC. SLE. Patient will also follow with Dr. anahi Alamo. - Time Spent With Patient Total time spent is greater than 50% in coordination of care (as documented) at patient's floor/unit and/or counseling patient: 15 - 25 minutes Subjective Interval history: Thrombocytopenia secondary to ITP Systemic lupus erythematosus Review of Systems - Review of Systems Patient is feeling good without any tiredness and fatigue. She denies any further bleeding. No abdominal pain. No fevers and chills. She has remains in good spirit. - Neurologic Denies confusion, Denies numbness, Denies weakness Exam Vital signs: Temp Pulse Resp BP Pulse Ox 36.1 C L 63 16 124/67 100 08/02/20 14:00 08/02/20 14:00 08/02/20 14:00 08/02/20 14:00 08/02/20 14:00 Narrative: Lungs are clear to auscultation bilaterally Cardiovascular regular rate rhythm no murmurs Abdomen soft nontender nondistended bowel sounds are positive Extremities no edema some bruises - Constitutional no acute distress, cooperative - Routine HEENT Exam Head: Present: atraumatic, normal inspection, normocephalic - Routine Neck Exam Present: full ROM, normal inspection. Absent: lymphadenopathy, thyromegaly - Routine Chest/Breast/Axilla Exam Axillae: Absent: lymphadenopathy - Routine Respiratory Exam Present: CTAB - Routine Cardiovascular Exam Cardiovascular: Present: RRR - Routine Abdominal Exam Present: normal bowel sounds, soft. Absent: tenderness - Routine Extremities Exam Present: pulses intact. Absent: pedal edema, tenderness - Routine Skin Exam Present: ecchymosis PN: Objective Data - Labs CBC & Chem 7: 08/02/20 07:39 08/02/20 07:39 Labs: Laboratory Results - last 24 hr 08/02/20 08/02/20 07:39 07:39 WBC 7.5 RBC 3.95 L Hgb 11.4 L Hct 33.6 L MCV 85.1 MCH 28.9 MCHC 33.9 RDW 13.0 Plt Count 71 L D MPV 13.6 H Immature Gran % (Auto) 0.3 Neut % (Auto) 81.2 H Lymph % (Auto) 15.3 L [place] % (Auto) 3.1 Eos % (Auto) 0.0 Baso % (Auto) 0.1 L Lymph # (Auto) 1.15 [place] # (Auto) 0.2 Eos # (Auto) 0.0 Baso # (Auto) 0.0 Abs Immat Gran (auto) 0.02 Absolute Neuts (auto) 6.1 Absolute Nucleated RBC 0.0 Nucleated RBC % 0.0 Sodium 139 Potassium 4.1 Chloride 102 Carbon Dioxide 30 Anion Gap 7 L BUN 18 H Creatinine 0.80 Estim Creat Clear Calc 85 Estimated GFR > 60 Glucose 119 H Calcium 9.1
[2020-08-02 19:35] VITALS: RESP 16; O2SAT 100
[2020-08-02 21:52] VITALS: BP 113/57; PULSE 57; RESP 16; TEMP 36.4; O2SAT 100
[2020-08-02] MEDS: ACETAMINOPHEN 325 MG TABLET 650 MG PO (22:04)
[2020-08-03 05:53] VITALS: BP 118/66; PULSE 50; RESP 16; TEMP 36.2; O2SAT 100
[2020-08-03] MEDS: methylPREDNISolone SOD SUCC 125 MG VIAL IV PUSH (05:54)
[2020-08-03 06:40] LABS: Hematocrit 35.6 % (37.0-47.0); Hemoglobin 11.6 g/dL (12.0-15.0); Immature Granulocyte Absolute 0.02 K/mm3 (0.00-0.031); Immature Granulocyte Percent A 0.3 % (0-0.5); Lymphocytes Percent Auto 20.5 % (18.3-44.2); Mean Corpuscular HGB Conc 32.6 g/dl (32-36); Mean Corpuscular Hemoglobin 28.2 pg (26-34); Mean Corpuscular Volume 86.6 fl (80-100); Mean Platelet Volume 12.4 fl (7.4-10.4); Monocytes Absolute Auto 0.3 K/mm3 (0.1-0.6); Monocytes Percent Auto 3.4 % (2.6-8.5); Neutrophils Absolute Auto 5.6 K/mm3 (1.3-6.7); Neutrophils Percent Auto 75.8 % (45.5-73.1); Platelet Count Result 85 k/mm3 (150-375); Red Blood Count 4.11 M/mm3 (4.2-5.4); Red Cell Distribution Width 13.1 % (11.5-14.5); White Blood Count 7.3 K/mm3 (4.5-10.0)
[2020-08-03] MEDS: PANTOPRAZOLE SODIUM IV 40 MG VIAL IV PUSH (08:58)
[2020-08-03] MEDS: THERAPEUTIC MULTIVITAMINS/MINERALS TAB (*BKC) 1 TABLET PO (08:58)
[2020-08-03] MEDS: polyethylene glycoL 3350 17 GM POWD.PACK PO (12:53)
[2020-08-03] MEDS: DOCUSATE SODIUM 100 MG CAPSULE PO (12:54)
--- NOTE | 2020-08-03 15:02 | PM.DS ---
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 Kwon is a 25 y.o. female with PMH significant for SLE who presented to the emergency department for the evaluation of heavy menstrual bleeding, atraumatic bruising to the lower extremities, and bleeding from ulcers in the mouth. Initial workup in the emergency department included CBC with WBC 2.5, Hb 11.9, hematocrit 35.4, platelets <3,000. Direct platelet-bound IgG Ab was ordered and results were available after discharge and positive. She was given 2 units of platelets 07/30 and treated with IV solu-medrol for presumed ITP secondary to SLE and exacerbated by hydroxychloroquine and mycophenolate mofetil use. She was admitted to the hospitalist service and Dr. Davis was consulted. Platelet count improved to 21,000 from 3,000 07/31. Platelet dropped to 6,000 08/01. She was given 2 additional units 08/01. IVIG was given and platelet count improved to 85,000 08/05. Vitamin B12 and folate were sufficient. TSH was normal. Hepatitis panel and HIV testing were negative. She had no further ongoing bleeding or new bruising. She was felt stable for discharge 08/03/[address] Davis's standpoint. He recommended she continue PO prednisone and follow-up with him in the office within 1 week. Repeat CBC was ordered for 08/06 for close monitoring of platelet count. She was referred to Dr. Alamo for management of her SLE and an appointment was scheduled for 08/12. I discussed worrisome signs and symptoms which would warrant return to the emergency department. She felt confortable with the plan for discharge and she was discharged in stable condition on the afternoon of 08/03/20. (2) Thrombocytopenia: Code(s): D69.6 - Thrombocytopenia, unspecified Status: Acute Assessment and Plan: As above. Continue to monitor closely. (3) SLE (systemic lupus erythematosus): Code(s): M32.9 - Systemic lupus erythematosus, unspecified Status: Chronic Assessment and Plan: Hydroxychloroquine and mycophenolate mofetil were held per hematology recommendations as they can both cause thrombocytopenia. She understands that with her medication being on hold this may precipitate a flare of her SLE. She will follow-up outpatient with Dr. Alamo within 1 week for management of her SLE. (4) Headache: Code(s): R51.9 - Headache, unspecified Status: Resolved Assessment and Plan: Resolved. [place] secondary to steroid use as pt reports hx of headaches due to prednisone. DS: Summary Hospital Course Reason for hospitalization: Atraumatic bruising, oral bleeding, heavy menstrual bleeding Hospital Course: As above. Status at Discharge Functional status at discharge: independent ambulation Overall status at discharge: patient is back to baseline Time Spent with Patient Time attestation: Total time spent providing and/or coordinating discharge services: 40 minutes Exam Narrative: Exam Narrative: Vitals at presentation: Temp Pulse Resp BP Pulse Ox 97.1 F L 67 15 137/99 H 99 07/30/20 18:13 07/30/20 18:13 07/30/20 18:13 07/30/20 18:13 07/30/20 18:13 Vitals at discharge: Temp Pulse Resp BP Pulse Ox 97.2 F L 50 L 16 118/66 100 08/03/20 05:53 08/03/20 05:53 08/03/20 05:53 08/03/20 05:53 08/03/20 05:53 General:Very pleasant, cooperative, and healthy-appearing 25 y.o. female lying semi-recumbent in bed in no acute distress. HEENT: Normocephalic and atraumatic. Small healed
[2020-08-06 14:58] LABS: Platelet Antibody, Direct IgG POSITIVE (NEGATIVE)
== END 2020-08-03 15:20 | disposition home or self-care (01) | DRG 813 ==
LOC: ANHED 22:43 → ANH3MEDSUR 07-31 03:24
PROVIDERS: Internal Medicine Hematology & Oncology; Admitting Provider Internal Medicine; Emergency Provider Emergency Medicine; Visit Provider Physician Assistant
DX: D69.3 Immune thrombocytopenic purpura (principal); M32.9 Systemic lupus erythematosus, unspecified; G44.40 Drug-induced headache, not elsewhere classified, not intractable; T38.0X5A Adverse effect of glucocorticoids and synthetic analogues, initial encounter; Z28.21 Immunization not carried out because of patient refusal; Z79.899 Other long term (current) drug therapy
CPT/HCPCS: 36415; 36430; 80048; 80053; 80074; 81001; 82607; 82746; 84443; 85025; 85055; 85610; 85652; 85730; 86023; 86140; 86703; 86900; 86901; 96374; 96375; 99285; P9036; A9270; C9113; G0432; J1459; J2930; J7050; P9034

== ENCOUNTER 2020-08-06 12:32 | Outpatient (CLI) | payer OTHER, SELFPAY ==
[2020-08-06 13:41] LABS: Basophils Percent Auto 0.2 % (0.2-1.2); Hematocrit 39.5 % (37.0-47.0); Immature Granulocyte Absolute 0.13 K/mm3 (0.00-0.031); Immature Granulocyte Percent A 1.3 % (0-0.5); Lymphocytes Absolute Auto 1.83 K/mm3 (0.9-3.2); Lymphocytes Percent Auto 18.8 % (18.3-44.2); Mean Corpuscular HGB Conc 32.9 g/dl (32-36); Mean Corpuscular Hemoglobin 28.4 pg (26-34); Mean Corpuscular Volume 86.4 fl (80-100); Mean Platelet Volume 11.5 fl (7.4-10.4); Monocytes Absolute Auto 0.2 K/mm3 (0.1-0.6); Neutrophils Absolute Auto 7.6 K/mm3 (1.3-6.7); Neutrophils Percent Auto 77.7 % (45.5-73.1); Platelet Count Result 228 k/mm3 (150-375); Red Blood Count 4.57 M/mm3 (4.2-5.4); Red Cell Distribution Width 13.2 % (11.5-14.5); White Blood Count 9.8 K/mm3 (4.5-10.0)
== END 2020-08-06 12:33 | disposition home or self-care (01) ==
PROVIDERS: Visit Provider Physician Assistant
DX: D69.3 Immune thrombocytopenic purpura (principal); D69.6 Thrombocytopenia, unspecified
CPT/HCPCS: 36415; 85025

== ENCOUNTER 2020-08-10 13:28 | Outpatient (CLI) | payer OTHER, SELFPAY ==
[2020-08-10 13:38] LABS: Hematocrit 37.2 % (37.0-47.0); Mean Corpuscular HGB Conc 32.3 g/dl (32-36); Mean Corpuscular Volume 86.9 fl (80-100); Mean Platelet Volume 10.1 fl (7.4-10.4); Platelet Count Result 285 k/mm3 (150-375); Red Blood Count 4.28 M/mm3 (4.2-5.4); Red Cell Distribution Width 13.2 % (11.5-14.5); White Blood Count 9.7 K/mm3 (4.5-10.0)
== END 2020-08-10 13:29 | disposition home or self-care (01) ==
LOC: ANHLAB 13:29
PROVIDERS: Visit Provider Internal Medicine Hematology & Oncology
DX: D69.3 Immune thrombocytopenic purpura (principal)
CPT/HCPCS: 36415; 85027

== ENCOUNTER 2020-08-21 14:40 | Outpatient (CLI) | payer OTHER, SELFPAY ==
[2020-08-21 14:59] LABS: Basophils Percent Auto 0.2 % (0.2-1.2); Eosinophils Percent Auto 0.2 % (0-4.4); Hematocrit 36.7 % (37.0-47.0); Hemoglobin 11.9 g/dL (12.0-15.0); Immature Granulocyte Absolute 0.01 K/mm3 (0.00-0.031); Immature Granulocyte Percent A 0.2 % (0-0.5); Lymphocytes Absolute Auto 2.69 K/mm3 (0.9-3.2); Lymphocytes Percent Auto 50.3 % (18.3-44.2); Mean Corpuscular HGB Conc 32.4 g/dl (32-36); Mean Corpuscular Hemoglobin 28.1 pg (26-34); Mean Corpuscular Volume 86.8 fl (80-100); Monocytes Absolute Auto 0.4 K/mm3 (0.1-0.6); Monocytes Percent Auto 6.7 % (2.6-8.5); Neutrophils Absolute Auto 2.3 K/mm3 (1.3-6.7); Neutrophils Percent Auto 42.4 % (45.5-73.1); Platelet Count Result 229 k/mm3 (150-375); Red Blood Count 4.23 M/mm3 (4.2-5.4); Red Cell Distribution Width 13.2 % (11.5-14.5); White Blood Count 5.4 K/mm3 (4.5-10.0)
[2020-08-21 16:35] LABS: Add Urine Microscopic? YES; Appearance Urine Clear (Clear); Bacteria Urine Trace /hpf; Bilirubin Urine Negative (Negative); Blood Urine Negative (Negative); Color Urine Yellow (Yellow); Glucose Urine UA Negative (Negative); Ketones Urine Trace mg/dL (Negative); Leukocyte Esterase Ur Negative LEU/UL (Negative); Mucus Urine Heavy /lpf; Nitrate Urine Negative (Negative); Protein Urine 2+ mg/dL (Negative); RBC Urine 0-2 /hpf (0-2); Specific Grav Ur 1.025 (1.001-1.035); Squamous Epithelial Cell Urine Occasional /hpf (Few); WBC Urine 0-3 /hpf
[2020-08-21 16:51] LABS: Alanine Aminotransferase 14 U/L (4-35); Albumin Level 3.9 g/dL (3.5-5.1); Alkaline Phosphatase 54 U/L (38-126); Anion Gap 8 mmol/L (8-16); Aspartate Amino Transferase 21 U/L (14-36); Bilirubin,Total 0.6 mg/dL (0.2-1.3); Blood Urea Nitrogen 9 mg/dL (7-17); CRP 0.6 mg/dL (<1.0); Calcium 8.6 mg/dL (8.4-10.2); Carbon Dioxide 32 mmol/L (22-30); Chloride 100 mmol/L (98-107); Creatinine Urine 330.2 mg/dL; Estimated Glomerular Filt Rate > 60; Glucose 83 mg/dL (65-105); Potassium 3.3 mmol/L (3.4-5.0); Sodium 140 mmol/L (137-145); Total Protein Urine Random 24 mg/dL
[2020-08-21 16:52] LABS: Complement C3 119 mg/dL (88-165)
[2020-08-21 17:59] LABS: Erythrocyte Sedimentation Rate 18 mm/hr (0-20)
== END 2020-08-21 14:41 | disposition home or self-care (01) ==
LOC: ANHLAB 14:43
PROVIDERS: Visit Provider Internal Medicine
DX: M32.9 Systemic lupus erythematosus, unspecified (principal)
CPT/HCPCS: 36415; 80053; 81001; 82570; 84156; 85025; 85652; 86140; 86160; 86225

== ENCOUNTER 2020-09-12 09:46 | Outpatient (CLI) | payer OTHER, SELFPAY ==
[2020-09-12 09:58] LABS: Basophils Percent Auto 0.2 % (0.2-1.2); Eosinophils Percent Auto 0.2 % (0-4.4); Hematocrit 37.6 % (37.0-47.0); Immature Granulocyte Absolute 0.01 K/mm3 (0.00-0.031); Immature Granulocyte Percent A 0.2 % (0-0.5); Lymphocytes Absolute Auto 1.44 K/mm3 (0.9-3.2); Lymphocytes Percent Auto 34.5 % (18.3-44.2); Mean Corpuscular HGB Conc 31.9 g/dl (32-36); Mean Corpuscular Hemoglobin 26.9 pg (26-34); Mean Corpuscular Volume 84.3 fl (80-100); Mean Platelet Volume 10.3 fl (7.4-10.4); Monocytes Absolute Auto 0.3 K/mm3 (0.1-0.6); Monocytes Percent Auto 7.4 % (2.6-8.5); Neutrophils Absolute Auto 2.4 K/mm3 (1.3-6.7); Neutrophils Percent Auto 57.5 % (45.5-73.1); Platelet Count Result 235 k/mm3 (150-375); Red Blood Count 4.46 M/mm3 (4.2-5.4); White Blood Count 4.2 K/mm3 (4.5-10.0)
[2020-09-12 10:19] LABS: Blood Urea Nitrogen 7 mg/dL (8-26); Carbon Dioxide 27 mmol/L (22-30); Chloride 102 mmol/L (98-109); Estimated Glomerular Filt Rate > 60; Glucose 89 mg/dL (70-105); Potassium 3.5 mmol/L (3.5-4.9); Sodium 141 mmol/L (138-146)
== END 2020-09-12 09:47 | disposition home or self-care (01) ==
LOC: ANHLAB 09:48
PROVIDERS: Visit Provider Internal Medicine Hematology & Oncology
DX: D69.3 Immune thrombocytopenic purpura (principal)
CPT/HCPCS: 36415; 80048; 85025

== ENCOUNTER 2020-09-24 14:51 | Outpatient (CLI) | payer OTHER, SELFPAY ==
[2020-09-24 15:06] LABS: Hematocrit 38.9 % (37.0-47.0); Hemoglobin 12.3 g/dL (12.0-15.0); Mean Corpuscular HGB Conc 31.6 g/dl (32-36); Mean Corpuscular Hemoglobin 26.5 pg (26-34); Mean Corpuscular Volume 83.7 fl (80-100); Mean Platelet Volume 10.9 fl (7.4-10.4); Platelet Count Result 221 k/mm3 (150-375); Red Blood Count 4.65 M/mm3 (4.2-5.4); Red Cell Distribution Width 13.1 % (11.5-14.5); White Blood Count 3.5 K/mm3 (4.5-10.0)
[2020-09-24 17:04] LABS: Erythrocyte Sedimentation Rate 5 mm/hr (0-20)
[2020-09-24 17:08] LABS: Alanine Aminotransferase 16 U/L (4-35); Albumin Level 4.1 g/dL (3.5-5.1); Alkaline Phosphatase 65 U/L (38-126); Anion Gap 6 mmol/L (8-16); Aspartate Amino Transferase 28 U/L (14-36); Bilirubin,Total 0.3 mg/dL (0.2-1.3); Blood Urea Nitrogen 9 mg/dL (7-17); CRP < 0.5 mg/dL (<1.0); Carbon Dioxide 31 mmol/L (22-30); Chloride 100 mmol/L (98-107); Estimated Glomerular Filt Rate > 60; Glucose 91 mg/dL (65-105); Potassium 4.2 mmol/L (3.4-5.0); Sodium 137 mmol/L (137-145)
== END 2020-09-24 14:52 | disposition home or self-care (01) ==
LOC: ANHLAB 14:52
PROVIDERS: Visit Provider Internal Medicine
DX: D69.3 Immune thrombocytopenic purpura (principal); M32.14 Glomerular disease in systemic lupus erythematosus; M32.9 Systemic lupus erythematosus, unspecified
CPT/HCPCS: 36415; 80053; 85027; 85652; 86140

== ENCOUNTER 2020-10-01 15:38 | Outpatient (CLI) | payer OTHER, SELFPAY ==
[2020-10-01 16:41] LABS: Add Urine Microscopic? YES; Appearance Urine Clear (Clear); Bacteria Urine Trace /hpf; Bilirubin Urine Negative (Negative); Blood Urine Negative (Negative); Color Urine Straw (Yellow); Glucose Urine UA Negative (Negative); Ketones Urine Negative (Negative); Leukocyte Esterase Ur Negative LEU/UL (Negative); Nitrate Urine Negative (Negative); Protein Urine Negative (Negative); Specific Grav Ur 1.012 (1.001-1.035); Squamous Epithelial Cell Urine Rare /hpf (Few); Urobilinogen Urine Negative mg/dL (<2.0); WBC Urine 0-3 /hpf
== END 2020-10-01 15:39 | disposition home or self-care (01) ==
LOC: ANHLAB 15:40
PROVIDERS: Visit Provider Internal Medicine
DX: M32.9 Systemic lupus erythematosus, unspecified (principal); Z79.899 Other long term (current) drug therapy
CPT/HCPCS: 81001

== ENCOUNTER 2020-10-24 08:16 | Outpatient (CLI) | payer OTHER, SELFPAY ==
[2020-10-24 08:44] LABS: Basophils Percent Auto 0.3 % (0.2-1.2); Eosinophils Percent Auto 0.3 % (0-4.4); Hematocrit 40.9 % (37.0-47.0); Hemoglobin 12.8 g/dL (12.0-15.0); Lymphocytes Absolute Auto 1.67 K/mm3 (0.9-3.2); Lymphocytes Percent Auto 43.4 % (18.3-44.2); Mean Corpuscular HGB Conc 31.3 g/dl (32-36); Mean Corpuscular Hemoglobin 25.8 pg (26-34); Mean Corpuscular Volume 82.3 fl (80-100); Monocytes Absolute Auto 0.4 K/mm3 (0.1-0.6); Monocytes Percent Auto 9.9 % (2.6-8.5); Neutrophils Absolute Auto 1.8 K/mm3 (1.3-6.7); Neutrophils Percent Auto 46.1 % (45.5-73.1); Red Blood Count 4.97 M/mm3 (4.2-5.4); Red Cell Distribution Width 13.7 % (11.5-14.5); White Blood Count 3.9 K/mm3 (4.5-10.0)
[2020-10-24 08:52] LABS: Platelet Count Result 24 k/mm3 (150-375)
[2020-10-24 08:58] LABS: Platelet Estimate Decreased (Adequate)
[2020-10-24 08:59] LABS: Large Platelets Present
[2020-10-24 12:18] LABS: Add Urine Microscopic? YES; Appearance Urine Clear (Clear); Bilirubin Urine Negative (Negative); Blood Urine Negative (Negative); Color Urine Straw (Yellow); Glucose Urine UA Negative (Negative); Ketones Urine Negative (Negative); Leukocyte Esterase Ur Negative LEU/UL (Negative); Mucus Urine Rare /lpf; Nitrate Urine Negative (Negative); Protein Urine 1+ mg/dL (Negative); RBC Urine 0-2 /hpf (0-2); Specific Grav Ur 1.018 (1.001-1.035); Squamous Epithelial Cell Urine Occasional /hpf (Few); Urobilinogen Urine Negative mg/dL (<2.0); WBC Urine 0-3 /hpf
[2020-10-24 12:24] LABS: Alanine Aminotransferase 16 U/L (4-35); Albumin Level 4.1 g/dL (3.5-5.1); Alkaline Phosphatase 55 U/L (38-126); Anion Gap 7 mmol/L (8-16); Aspartate Amino Transferase 25 U/L (14-36); Bilirubin,Total 0.3 mg/dL (0.2-1.3); Blood Urea Nitrogen 13 mg/dL (7-17); CRP < 0.5 mg/dL (<1.0); Calcium 8.8 mg/dL (8.4-10.2); Carbon Dioxide 31 mmol/L (22-30); Chloride 101 mmol/L (98-107); Estimated Glomerular Filt Rate > 60; Glucose 89 mg/dL (65-105); Sodium 139 mmol/L (137-145)
[2020-10-24 12:36] LABS: Complement C3 92 mg/dL (88-165)
[2020-10-24 12:37] LABS: Erythrocyte Sedimentation Rate 6 mm/hr (0-20)
[2020-10-24 12:40] LABS: Creatinine Urine 90.3 mg/dL; Total Protein Urine Random 16 mg/dL; Ur Ttl Prot Creatinine Ratio 0.18 mg/mg (0-0.20)
== END 2020-10-24 08:17 | disposition home or self-care (01) ==
LOC: ANHLAB 08:17
PROVIDERS: Visit Provider Internal Medicine
DX: M19.90 Unspecified osteoarthritis, unspecified site (principal); M32.9 Systemic lupus erythematosus, unspecified; Z79.899 Other long term (current) drug therapy
CPT/HCPCS: 36415; 80053; 81001; 82570; 84156; 85025; 85652; 86140; 86160

== ENCOUNTER 2020-11-05 09:02 | Outpatient (CLI) | payer OTHER, SELFPAY ==
[2020-11-05 09:25] LABS: Basophils Percent Auto 0.2 % (0.2-1.2); Hematocrit 42.6 % (37.0-47.0); Hemoglobin 13.4 g/dL (12.0-15.0); Immature Granulocyte Absolute 0.01 K/mm3 (0.00-0.031); Immature Granulocyte Percent A 0.2 % (0-0.5); Lymphocytes Absolute Auto 1.22 K/mm3 (0.9-3.2); Lymphocytes Percent Auto 22.6 % (18.3-44.2); Mean Corpuscular HGB Conc 31.5 g/dl (32-36); Mean Corpuscular Hemoglobin 25.9 pg (26-34); Mean Corpuscular Volume 82.4 fl (80-100); Monocytes Absolute Auto 0.4 K/mm3 (0.1-0.6); Neutrophils Absolute Auto 3.7 K/mm3 (1.3-6.7); Platelet Count Result 183 k/mm3 (150-375); Red Blood Count 5.17 M/mm3 (4.2-5.4); Red Cell Distribution Width 14.2 % (11.5-14.5); White Blood Count 5.4 K/mm3 (4.5-10.0)
== END 2020-11-05 09:03 | disposition home or self-care (01) ==
LOC: ANHLAB 09:04
PROVIDERS: Visit Provider Internal Medicine Hematology & Oncology
DX: D69.3 Immune thrombocytopenic purpura (principal)
CPT/HCPCS: 36415; 85025

== ENCOUNTER 2020-12-04 08:03 | Outpatient (CLI) | payer OTHER, SELFPAY ==
[2020-12-04 08:36] LABS: Basophils Percent Auto 0.2 % (0.2-1.2); Eosinophils Percent Auto 0.2 % (0-4.4); Hematocrit 40.5 % (37.0-47.0); Immature Granulocyte Absolute 0.01 K/mm3 (0.00-0.031); Immature Granulocyte Percent A 0.2 % (0-0.5); Lymphocytes Absolute Auto 1.22 K/mm3 (0.9-3.2); Lymphocytes Percent Auto 29.1 % (18.3-44.2); Mean Corpuscular HGB Conc 32.1 g/dl (32-36); Mean Corpuscular Hemoglobin 25.7 pg (26-34); Mean Corpuscular Volume 80.2 fl (80-100); Monocytes Absolute Auto 0.2 K/mm3 (0.1-0.6); Neutrophils Absolute Auto 2.7 K/mm3 (1.3-6.7); Neutrophils Percent Auto 65.3 % (45.5-73.1); Platelet Count Result 80 k/mm3 (150-375); Red Blood Count 5.05 M/mm3 (4.2-5.4); Red Cell Distribution Width 15.5 % (11.5-14.5); White Blood Count 4.2 K/mm3 (4.5-10.0)
== END 2020-12-04 08:04 | disposition home or self-care (01) ==
LOC: ANHLAB 08:04
PROVIDERS: Visit Provider Internal Medicine Hematology & Oncology
DX: D69.3 Immune thrombocytopenic purpura (principal)
CPT/HCPCS: 36415; 85025; 85055

== ENCOUNTER 2020-12-19 10:53 | Outpatient (CLI) | payer OTHER, SELFPAY ==
[2020-12-19 11:12] LABS: Hematocrit 42.8 % (37.0-47.0); Hemoglobin 13.7 g/dL (12.0-15.0); Immature Platelet Fraction Pct 7.9 % (0.9-11.2); Mean Corpuscular Hemoglobin 25.9 pg (26-34); Mean Corpuscular Volume 80.9 fl (80-100); Platelet Count Result 98 k/mm3 (150-375); Red Blood Count 5.29 M/mm3 (4.2-5.4); Red Cell Distribution Width 16.2 % (11.5-14.5); White Blood Count 5.4 K/mm3 (4.5-10.0)
[2020-12-19 11:19] LABS: Add Urine Microscopic? YES
[2020-12-19 11:21] LABS: Appearance Urine Cloudy (Clear); Color Urine Yellow (Yellow); Glucose Urine UA Negative (Negative); Protein Urine Negative (Negative); Specific Grav Ur 1.015 (1.001-1.035)
[2020-12-19 11:22] LABS: Bilirubin Urine Negative (Negative); Blood Urine Negative (Negative); Ketones Urine Negative (Negative); Leukocyte Esterase Ur Trace LEU/UL (Negative); Nitrate Urine Negative (Negative); Urobilinogen Urine 0.2 mg/dL (<2.0)
[2020-12-19 11:43] LABS: RBC Urine None seen /hpf (0-2)
[2020-12-19 11:44] LABS: Amorphous Sediment Urine Few; Squamous Epithelial Cell Urine Few /hpf (Few); WBC Urine None seen /hpf (0-3)
[2020-12-19 11:45] LABS: Bacteria Urine None seen /hpf
[2020-12-19 15:40] LABS: Alanine Aminotransferase 15 U/L (4-35); Albumin Level 4.1 g/dL (3.5-5.1); Alkaline Phosphatase 47 U/L (38-126); Anion Gap 7 mmol/L (8-16); Aspartate Amino Transferase 19 U/L (14-36); Bilirubin,Total 0.2 mg/dL (0.2-1.3); Blood Urea Nitrogen 10 mg/dL (7-17); CRP < 0.5 mg/dL (<1.0); Calcium 9.1 mg/dL (8.4-10.2); Carbon Dioxide 32 mmol/L (22-30); Chloride 99 mmol/L (98-107); Estimated Glomerular Filt Rate > 60; Glucose 85 mg/dL (65-105); Potassium 3.7 mmol/L (3.4-5.0); Sodium 138 mmol/L (137-145)
[2020-12-19 15:43] LABS: Complement C3 98 mg/dL (88-165)
[2020-12-19 16:06] LABS: Erythrocyte Sedimentation Rate 6 mm/hr (0-20)
== END 2020-12-19 10:54 | disposition home or self-care (01) ==
PROVIDERS: Visit Provider Internal Medicine
DX: M32.9 Systemic lupus erythematosus, unspecified (principal); D69.6 Thrombocytopenia, unspecified; M19.90 Unspecified osteoarthritis, unspecified site; Z79.899 Other long term (current) drug therapy
CPT/HCPCS: 36415; 80053; 81001; 85027; 85055; 85652; 86140; 86160

== ENCOUNTER 2021-01-07 09:13 | Outpatient (CLI) | payer OTHER, SELFPAY ==
[2021-01-07 09:28] LABS: Hematocrit 41.6 % (37.0-47.0); Hemoglobin 13.3 g/dL (12.0-15.0); Mean Corpuscular Volume 81.4 fl (80-100); Mean Platelet Volume 11.1 fl (7.4-10.4); Platelet Count Result 143 k/mm3 (150-375); Red Blood Count 5.11 M/mm3 (4.2-5.4); Red Cell Distribution Width 16.3 % (11.5-14.5)
== END 2021-01-07 09:14 | disposition home or self-care (01) ==
PROVIDERS: Visit Provider Internal Medicine Hematology & Oncology
DX: D69.3 Immune thrombocytopenic purpura (principal)
CPT/HCPCS: 36415; 85027

== ENCOUNTER 2021-02-06 09:16 | Outpatient (RCR) | payer OTHER, SELFPAY ==
[2021-02-06 09:46] LABS: Hematocrit 41.7 % (37.0-47.0); Hemoglobin 13.2 g/dL (12.0-15.0); Mean Corpuscular HGB Conc 31.7 g/dl (32-36); Mean Corpuscular Volume 85.3 fl (80-100); Mean Platelet Volume 10.7 fl (7.4-10.4); Platelet Count Result 197 k/mm3 (150-375); Red Blood Count 4.89 M/mm3 (4.2-5.4); Red Cell Distribution Width 14.3 % (11.5-14.5); White Blood Count 4.2 K/mm3 (4.5-10.0)
== END 2021-05-07 23:59 | disposition home or self-care (01) ==
LOC: ANHLAB 09:16
PROVIDERS: Visit Provider Internal Medicine Hematology & Oncology
DX: D69.3 Immune thrombocytopenic purpura (principal)
CPT/HCPCS: 36415; 85027

== ENCOUNTER 2021-02-27 13:43 | Outpatient (CLI) | payer OTHER, SELFPAY ==
[2021-02-27 14:00] LABS: Hematocrit 44.3 % (37.0-47.0); Hemoglobin 14.2 g/dL (12.0-15.0); Mean Corpuscular HGB Conc 32.1 g/dl (32-36); Mean Corpuscular Hemoglobin 27.4 pg (26-34); Mean Corpuscular Volume 85.4 fl (80-100); Mean Platelet Volume 10.2 fl (7.4-10.4); Platelet Count Result 249 k/mm3 (150-375); Red Blood Count 5.19 M/mm3 (4.2-5.4); Red Cell Distribution Width 13.9 % (11.5-14.5); White Blood Count 4.3 K/mm3 (4.5-10.0)
== END 2021-02-27 13:44 | disposition home or self-care (01) ==
LOC: ANHLAB 13:47
PROVIDERS: Visit Provider Internal Medicine Hematology & Oncology
DX: D69.3 Immune thrombocytopenic purpura (principal)
CPT/HCPCS: 36415; 85027

== ENCOUNTER 2021-05-09 09:19 | Outpatient (CLI) | payer OTHER, SELFPAY ==
[2021-05-09 09:38] LABS: Hematocrit 40.2 % (37.0-47.0); Hemoglobin 12.9 g/dL (12.0-15.0); Mean Corpuscular HGB Conc 32.1 g/dl (32-36); Mean Corpuscular Hemoglobin 27.8 pg (26-34); Mean Corpuscular Volume 86.6 fl (80-100); Mean Platelet Volume 10.9 fl (7.4-10.4); Platelet Count Result 168 k/mm3 (150-375); Red Blood Count 4.64 M/mm3 (4.2-5.4); Red Cell Distribution Width 14.8 % (11.5-14.5); White Blood Count 4.2 K/mm3 (4.5-10.0)
== END 2021-05-09 09:20 | disposition home or self-care (01) ==
LOC: ANHLAB 09:24
PROVIDERS: Visit Provider Internal Medicine Hematology & Oncology
DX: D69.3 Immune thrombocytopenic purpura (principal)
CPT/HCPCS: 36415; 85027

== ENCOUNTER 2021-10-28 09:02 | Outpatient (CLI) | payer OTHER, SELFPAY ==
[2021-10-28 09:22] LABS: Basophils Percent Auto 0.3 % (0.2-1.2); Eosinophils Percent Auto 0.3 % (0-4.4); Hematocrit 42.8 % (37.0-47.0); Hemoglobin 13.3 g/dL (12.0-15.0); Immature Granulocyte Absolute 0.01 K/mm3 (0.00-0.031); Immature Granulocyte Percent A 0.3 % (0-0.5); Lymphocytes Absolute Auto 0.89 K/mm3 (0.9-3.2); Lymphocytes Percent Auto 22.8 % (18.3-44.2); Mean Corpuscular HGB Conc 31.1 g/dl (32-36); Mean Corpuscular Hemoglobin 28.8 pg (26-34); Mean Corpuscular Volume 92.6 fl (80-100); Mean Platelet Volume 11.3 fl (7.4-10.4); Monocytes Absolute Auto 0.3 K/mm3 (0.1-0.6); Monocytes Percent Auto 7.9 % (2.6-8.5); Neutrophils Absolute Auto 2.7 K/mm3 (1.3-6.7); Neutrophils Percent Auto 68.4 % (45.5-73.1); Platelet Count Result 144 k/mm3 (150-375); Red Blood Count 4.62 M/mm3 (4.2-5.4); Red Cell Distribution Width 13.3 % (11.5-14.5); White Blood Count 3.9 K/mm3 (4.5-10.0)
[2021-10-28 09:25] LABS: Blood Urea Nitrogen 11 mg/dL (8-26); Carbon Dioxide 28 mmol/L (22-30); Chloride 102 mmol/L (98-109); Estimated Glomerular Filt Rate > 60; Glucose 87 mg/dL (70-105); Potassium 4.3 mmol/L (3.5-4.9); Sodium 142 mmol/L (138-146)
[2021-10-28 10:01] LABS: Alanine Aminotransferase 14 U/L (4-35); Albumin Level 3.9 g/dL (3.5-5.1); Alkaline Phosphatase 58 U/L (38-126); Anion Gap 3 mmol/L (8-16); Aspartate Amino Transferase 23 U/L (14-36); Bilirubin,Total 0.2 mg/dL (0.2-1.3); Blood Urea Nitrogen 11 mg/dL (7-17); Calcium 8.5 mg/dL (8.4-10.2); Carbon Dioxide 29 mmol/L (22-30); Chloride 106 mmol/L (98-107); Estimated Glomerular Filt Rate > 60; Glucose 95 mg/dL (65-110); Potassium 4.3 mmol/L (3.4-5.0); Sodium 138 mmol/L (137-145)
== END 2021-10-28 09:03 | disposition home or self-care (01) ==
LOC: ANHLAB 09:03
PROVIDERS: Visit Provider Internal Medicine Hematology & Oncology
DX: D69.3 Immune thrombocytopenic purpura (principal)
CPT/HCPCS: 36415; 80053; 85025

== ENCOUNTER 2022-02-14 12:23 | Outpatient (CLI) | payer OTHER, SELFPAY ==
[2022-02-14 12:55] LABS: Basophils Percent Auto 0.3 % (0.2-1.2); Hematocrit 39.9 % (37.0-47.0); Hemoglobin 13.2 g/dL (12.0-15.0); Immature Granulocyte Absolute 0.01 K/mm3 (0.00-0.031); Immature Granulocyte Percent A 0.3 % (0-0.5); Lymphocytes Absolute Auto 0.84 K/mm3 (0.9-3.2); Lymphocytes Percent Auto 23.8 % (18.3-44.2); Mean Corpuscular HGB Conc 33.1 g/dl (32-36); Mean Corpuscular Volume 87.7 fl (80-100); Mean Platelet Volume 11.6 fl (7.4-10.4); Monocytes Absolute Auto 0.3 K/mm3 (0.1-0.6); Monocytes Percent Auto 9.1 % (2.6-8.5); Neutrophils Absolute Auto 2.4 K/mm3 (1.3-6.7); Neutrophils Percent Auto 66.5 % (45.5-73.1); Platelet Count Result 149 k/mm3 (150-375); Red Blood Count 4.55 M/mm3 (4.2-5.4); White Blood Count 3.5 K/mm3 (4.5-10.0)
[2022-02-14 13:15] LABS: Alanine Aminotransferase 11 U/L (6-35); Alkaline Phosphatase 58 U/L (38-126); Anion Gap 3 mmol/L (8-16); Aspartate Amino Transferase 75 U/L (14-36); Atypical Lymphocytes Present; Bilirubin,Total 0.4 mg/dL (0.2-1.3); Blood Urea Nitrogen 11 mg/dL (7-17); Calcium 8.2 mg/dL (8.4-10.2); Carbon Dioxide 31 mmol/L (22-30); Chloride 105 mmol/L (98-107); Estimated Glomerular Filt Rate > 60; Glucose 81 mg/dL (65-110); Platelet Estimate Adequate (Adequate); Potassium 3.8 mmol/L (3.4-5.0); Sodium 139 mmol/L (137-145)
== END 2022-02-14 12:24 | disposition home or self-care (01) ==
LOC: ANHLAB 12:24
PROVIDERS: Visit Provider Internal Medicine Hematology & Oncology
DX: D69.3 Immune thrombocytopenic purpura (principal)
CPT/HCPCS: 36415; 80053; 85025